=== PATIENT | female | born 1975 | race Hispanic/Latino ===

== ENCOUNTER 2021-09-22 16:35 | Outpatient (CLI) | payer BC ==
[2021-09-22 17:03] LABS: Hemoglobin 11.6 g/dL (12.0-15.5); Mean Corpuscular HGB CONC 32.3 g/dL (32.0-36.0); Mean Corpuscular Hemoglobin 25.8 pg (27.0-33.0); Mean Platelet Volume 9.3 fl (7.4-10.4); Platelet Count 320 10x3/uL (150-450); RBC Distribution Width 14.8 % (11.5-14.5); Red Blood Cell (RBC) Count 4.49 10x6/uL (3.90-5.03); White Blood Cell (WBC) Count 6.3 10x3/uL (3.5-10.5)
[2021-09-22 17:27] LABS: BHCG - Serum Negative (NEGATIVE); Pregs Control Background? CLEAR/WHITE (CLR/WHITE); Pregs Control Bar Appear? YES (CONTROL BAR)
[2021-09-23 11:55] LABS: SARS-CoV-2 PCR by NAA Not Detected (NotDetected)
== END 2021-09-22 16:36 | disposition home or self-care (01) ==
LOC: CSHLAB 16:35
PROVIDERS: ATTEND Obstetrics & Gynecology
DX: Z01.812 Encounter for preprocedural laboratory examination (principal); Z20.822 Contact with and (suspected) exposure to COVID-19; N39.3 Stress incontinence (female) (male); N81.4 Uterovaginal prolapse, unspecified
CPT/HCPCS: 84703; 85027; 86850; 86900; 86901; U0003; U0005

== ENCOUNTER 2021-09-27 08:36 | Day surgery (SDC) | payer BC ==
[2021-09-22 17:03] LABS: Hemoglobin 11.6 g/dL (12.0-15.5); Mean Corpuscular HGB CONC 32.3 g/dL (32.0-36.0); Mean Corpuscular Hemoglobin 25.8 pg (27.0-33.0); Mean Platelet Volume 9.3 fl (7.4-10.4); Platelet Count 320 10x3/uL (150-450); RBC Distribution Width 14.8 % (11.5-14.5); Red Blood Cell (RBC) Count 4.49 10x6/uL (3.90-5.03); White Blood Cell (WBC) Count 6.3 10x3/uL (3.5-10.5)
[2021-09-22 17:27] LABS: BHCG - Serum Negative (NEGATIVE); Pregs Control Background? CLEAR/WHITE (CLR/WHITE); Pregs Control Bar Appear? YES (CONTROL BAR)
[2021-09-23 11:55] LABS: SARS-CoV-2 PCR by NAA Not Detected (NotDetected)
[2021-09-23 14:49] VITALS: BMI 26.4
[2021-09-27] MEDS ORDERED: Gabapentin 300 MG CAP ONE (08:46)
[2021-09-27] MEDS ORDERED: Lidocaine 1% MPF 2 ML VIAL ONE (08:47)
[2021-09-27] MEDS ORDERED: CeleCOXIB 100 MG CAP ONE (08:47)
[2021-09-27] MEDS ORDERED: Famotidine/PF 20 mg/2ml Vial ONE (08:47)
[2021-09-27] MEDS ORDERED: EPINEPHrine 1 MG/ML AMP ONE (09:21)
[2021-09-27] MEDS ORDERED: Lidocaine 1% w/Epinephrine 1:100K 30 ML VIAL ONE (09:22)
[2021-09-27] MEDS ORDERED: Bupivacaine PF 0.5% 30 ML VIAL ONE (09:22)
[2021-09-27] MEDS ORDERED: Rocuronium Bromide 10 MG/ML (10ML VIAL) ONE (10:33)
[2021-09-27] MEDS ORDERED: Lidocaine 2% PF 5 ML VIAL ONE (10:33)
[2021-09-27] MEDS ORDERED: Fentanyl 100 MCG/2 ML VIAL ONE ×2 (10:33→13:55)
[2021-09-27] MEDS ORDERED: PROPOFOL 20 ML ONE (10:33)
[2021-09-27] MEDS ORDERED: Midazolam HCl 2 mg/2 ml Vial ONE (10:35)
[2021-09-27] MEDS ORDERED: Ondansetron PF 4 MG/2 ML Vial ONE (11:03)
[2021-09-27] MEDS ORDERED: Dexamethasone 4 mg/ml Vial ONE (11:03)
[2021-09-27] MEDS ORDERED: Glycopyrrolate 0.2 MG/ML 5 ML SYRINGE ONE (11:03)
[2021-09-27] MEDS ORDERED: ePHEDrine Sulfate 50 MG/10 ML VIAL ONE (11:04)
[2021-09-27] MEDS ORDERED: Morphine 2 MG/ML VIAL SLOW IVP PRN (13:07)
[2021-09-27] MEDS ORDERED: traMADol HCl 50 MG TAB PO PRN (13:07)
[2021-09-27] MEDS ORDERED: Promethazine HCl 25 MG/ML VIAL IM PRN (13:07)
[2021-09-27] MEDS ORDERED: diphenhydrAMINE 25 MG CAP PO PRN (13:07)
[2021-09-27] MEDS ORDERED: Bisacodyl 10 MG SUPP PR PRN (13:07)
[2021-09-27] MEDS ORDERED: Zolpidem Tartrate 5 MG TAB PO PRN (13:07)
[2021-09-27] MEDS ORDERED: Ondansetron PF 4 MG/2 ML Vial IVP PRN (13:07)
[2021-09-27] MEDS ORDERED: Simethicone Chewable 80 MG TAB PO PRN (13:07)
[2021-09-27] MEDS ORDERED: HYDROcodone/Acetaminophen 5/325 mg Tablet PO PRN ×2 (13:07)
[2021-09-27] MEDS: Sodium Chloride 0.9% 1,000 ML IV SCH ×2 (14:49→21:32)
[2021-09-27] MEDS: Morphine 4 MG/ML VIAL SLOW IVP PRN ×2 (15:46→20:45)
[2021-09-27] MEDS: Ibuprofen 800 MG TAB PO SCH ×2 (16:21→23:08)
[2021-09-27] MEDS ORDERED: OMEGA COMBINATION NO 7 PO SCH (21:00)
[2021-09-27] MEDS ORDERED: [UNRECOGNIZED DRUG - OTHER] PO SCH (21:00)
[2021-09-27] MEDS: Flecainide 50 MG TAB PO SCH (21:31)
[2021-09-27] MEDS: Docusate 100 MG CAP PO SCH (21:31)
[2021-09-28] MEDS ORDERED: Levothyroxine Sodium 50 MCG TAB PO SCH (06:00)
[2021-09-28 06:04] LABS: Hemoglobin 10.6 g/dL (12.0-15.5); Mean Corpuscular Hemoglobin 25.5 pg (27.0-33.0); Mean Corpuscular Volume 79.6 fl (81.6-98.3); Mean Platelet Volume 9.4 fl (7.4-10.4); Platelet Count 332 10x3/uL (150-450); RBC Distribution Width 14.5 % (11.5-14.5); Red Blood Cell (RBC) Count 4.16 10x6/uL (3.90-5.03); White Blood Cell (WBC) Count 11.3 10x3/uL (3.5-10.5)
[2021-09-28] MEDS: Ibuprofen 800 MG TAB PO SCH (06:21)
[2021-09-28 08:01] VITALS: TEMP 98.5
[2021-09-28] MEDS: Docusate 100 MG CAP PO SCH (08:59)
[2021-09-28] MEDS: Flecainide 50 MG TAB PO SCH (08:59)
[2021-09-28] MEDS: Sodium Chloride 0.9% 1,000 ML IV SCH (09:04)
[2021-09-28 11:44] VITALS: BP 140/67
[2021-09-28] MEDS ORDERED: OMEGA COMBINATION NO 7 PO SCH (12:30)
[2021-09-28] MEDS ORDERED: [UNRECOGNIZED DRUG - OTHER] PO SCH (12:30)
== END 2021-09-28 12:20 | disposition home or self-care (01) ==
LOC: CSHSDC 08:36 → CSHPP 14:18 → UNDOADMIN 14:18 → UNDODISIN 09-28 12:20 → CSHSDC 09-28 12:20
PROVIDERS: ATTEND Obstetrics & Gynecology
PROC: 0UT74ZZ Resection of Bilateral Fallopian Tubes, Percutaneous Endoscopic Approach (ICD-10-PCS; principal; 2021-09-27)
PROC: 0JQC0ZZ Repair Pelvic Region Subcutaneous Tissue and Fascia, Open Approach (ICD-10-PCS; principal; 2021-09-27)
PROC: 0UT94ZZ Resection of Uterus, Percutaneous Endoscopic Approach (ICD-10-PCS; principal; 2021-09-27)
PROC: 0TSC4ZZ Reposition Bladder Neck, Percutaneous Endoscopic Approach (ICD-10-PCS; principal; 2021-09-27)
DX: N72 Inflammatory disease of cervix uteri (principal); N81.2 Incomplete uterovaginal prolapse; N39.3 Stress incontinence (female) (male); I10 Essential (primary) hypertension; E03.9 Hypothyroidism, unspecified; E66.9 Obesity, unspecified; Z68.27 Body mass index [BMI] 27.0-27.9, adult; Z91.040 Latex allergy status; Z87.891 Personal history of nicotine dependence; Z79.899 Other long term (current) drug therapy
CPT/HCPCS: 36415; 84703; 85027; 86850; 86900; 86901; 88305; C1781; J0171; J0690; J1100; J2001; J2250; J2270; J2405; J2704; J3010; J7050; S0020; S0028; U0003; U0005

== ENCOUNTER 2024-09-19 13:23 | Outpatient (CLI) | payer BC ==
[2024-09-19 14:10] LABS: #Basophils 0.05 10x3/uL (0.0-0.2); #Monocytes 0.61 10x3/uL (0.0-1.1); #Neutrophils 2.49 10x3/uL (1.5-8.4); %Basophils 0.8 % (0.0-2.0); %Eosinophils 1.6 % (0.0-6.0); %Lymphocytes 48.4 % (18.0-47.0); %Monocytes 9.7 % (0.0-10.0); %Neutrophils 39.3 % (40.0-75.0); Hematocrit 41.9 % (34.9-44.5); Hemoglobin 13.5 g/dL (12.0-15.5); Mean Corpuscular HGB CONC 32.2 g/dL (32.0-36.0); Mean Corpuscular Hemoglobin 28.4 pg (27.0-33.0); Mean Corpuscular Volume 88.2 fL (81.6-98.3); Mean Platelet Volume 9.4 fL (7.4-10.4); Platelet Count 256 10x3/uL (150-450); RBC Distribution Width 12.5 % (11.5-14.5); Red Blood Cell (RBC) Count 4.75 10x6/uL (3.90-5.03); White Blood Cell (WBC) Count 6.3 10x3/uL (3.5-10.5)
[2024-09-19 14:34] LABS: ALT (SGPT) 49 U/L (8-55); AST (SGOT) 30 U/L (5-34); Albumin 4.4 g/dL (3.5-5.0); Alkaline Phosphatase 55 U/L (40-110); Anion Gap 14 mmol/L (10-20); BUN (Urea Nitrogen) 17 mg/dL (7.0-18.7); Bilirubin, Total 0.5 mg/dL (0.2-1.2); Calc. Creatinine Clearance 0 mL/min (70-130); Calcium 10.2 mg/dL (7.8-10.44); Carbon Dioxide 26 mmol/L (22-29); Chloride 104 mmol/L (98-107); Estimated GFR 86; Globulin 3.4 g/dL (2.4-3.5); Glucose 92 mg/dL (70-105); Potassium 4.1 mmol/L (3.5-5.1); Protein, Total 7.8 g/dL (6.0-8.3); Sodium 140 mmol/L (136-145)
== END 2024-09-19 13:24 | disposition home or self-care (01) ==
LOC: CSHLAB 13:23
PROVIDERS: ATTEND Specialist
DX: Z01.818 Encounter for other preprocedural examination (principal); K80.20 Calculus of gallbladder without cholecystitis without obstruction
CPT/HCPCS: 80053; 85025; 93005; 93010